=== PATIENT | male | born 1960 | race Caucasian/White ===

== ENCOUNTER 2021-08-04 05:55 | Day surgery (SDC) | payer BC ==
[2021-08-03 08:26] VITALS: BMI 31.5
[2021-08-04] MEDS ORDERED: MIDAZOLAM 2 MG/2 ML VIAL IV PRN (06:33)
[2021-08-04] MEDS ORDERED: LACTATED RINGERS 1,000 ML IV SCH (06:33)
[2021-08-04] MEDS ORDERED: DEXAMETHASONE SOD PHOSPHATE 4 MG/ML 1 ML VIAL IV ONE (06:33)
[2021-08-04] MEDS ORDERED: ONDANSETRON 4 MG/2 ML VIAL IVP ONE (06:33)
[2021-08-04] MEDS ORDERED: SCOPOLAMINE 1.5MG/72HR PATCH TRANSDERM ONE (06:33)
[2021-08-04] MEDS ORDERED: HYDROmorphone 0.5 MG/0.5 ML SYRINGE IVP PRN (07:00)
[2021-08-04] MEDS ORDERED: LACTATED RINGERS 1,000 ML IV ONE (07:10)
[2021-08-04] MEDS ORDERED: LIDOCAINE 1% INJ 10MG/ML (20 ML MDV) ONE (07:20)
[2021-08-04] MEDS ORDERED: MIDAZOLAM 2 MG/2 ML VIAL ONE (07:20)
[2021-08-04] MEDS ORDERED: PROPOFOL 10 MG/ML 20 ML VIAL IV ONE (07:20)
[2021-08-04] MEDS ORDERED: fentaNYL (PF) 50 MCG/ML 2 ML AMP ONE (07:20)
[2021-08-04] MEDS ORDERED: BUPIVACAINE (PF) 0.25% 30 ML VIAL SQ ONE (07:40)
[2021-08-04 08:47] VITALS: TEMP 96.8
--- NOTE | 2021-08-04 09:02 | P.OP ---
Date of Procedure: 08/04/21 Preoperative Diagnosis: Hallux rigidus right foot Postoperative Diagnosis: Same Procedure(s) Performed: First metatarsal phalangeal joint arthrodesis right foot Implants: Arthrex MaxForce first MTP fusion plate Anesthesia: MIKE Surgeon: Derek Rebollar Estimated Blood Loss (ml): 2 Pathology: none sent Condition: stable Disposition: PACU Indications for Procedure: Painful, arthritic first MTP nonresponsive to conservative therapy Operative Findings: Full-thickness articular cartilage erosion of the first metatarsal head encompassing greater than 75% of the joint surface. Loose osteophytes over the dorsal aspect of the base of the proximal phalanx and lateral aspect of the first metatarsal head. Large osteophyte dorsally and the first metatarsal head Description of Procedure: The patient was brought into the operative room placed on the table supine position. Timeout was taken to confirm correct patient identifiers, correct site of surgery, and correct procedure. When the timeout was completed the patient was induced and placed under general anesthesia. A well-padded tourniquet was placed on the right ankle. 20 mL 0.25% Marcaine was injected ankle block. Right was prepped and draped usual manner. The foot was exsanguinated with an Esmarch bandage and the tourniquet inflated to 250 mmHg. An incision was made over the dorsomedial aspect of the first metatarsal phalangeal joint to the extensor hallucis longus tendon and neurovascular bundle. The incision was deepened under the subcu tissue careful to identify, avoid, and retract any neurovascular structures and cauterize any bleeding vessels. Dissection was continued down to the joint capsule. A linear incision was made to the joint capsule just medial to the extensor hallucis longus tendon. The joint was then reflected from its osseous attachment was of the first metatarsal head and base of the proximal phalanx. There osteophytes present on the dorsal aspect of the base of proximal phalanx as well as the head of the first metatarsal, these were all removed with a Ronguer. There is a loose osteophyte on the lateral aspect of the first metatarsal head that was sharply dissected from the surrounding soft tissue and removed. The guidewires placed in the central aspect of the first metatarsal head and into the medullary canal. A barrel and receiver aligner was then used to contour the first metatarsal head. The concave reamer was used to remove the articular cartilage and subchondral bone down to bleeding medullary bone. The guidewire was removed and used to fenestrate the head thoroughly. Then the guidewire was inserted the middle aspect of the articular surface of the proximal phalanx., And box reamer was then used to remove the articular cartilage and subchondral bone down to bleeding medullary bone. The wire was removed and the joint surfaces also thoroughly fenestrated. The wound is then copiously irrigated with antibiotic saline. 1 mL of an Arthrex bone protein product was then placed between the arthrodesis segments. The Arthrex MaxForce plate was then positioned dorsally utilizing the reference line over the joint. It was then temporarily fixated and checked under fluoroscopy for alignment. When alignment of the joint plate were satisfactory 3 locking screws were placed distally through the plate into the proximal phalanx. Then the alignment of the plate and digit were then checked again under fluoroscopy and once satisfactory a wire was placed extra articularly across the fusion site to maintain the correction. The drill hole for the compression device was then made in the proximal aspect of the plate. The compression device was inserted and turned to further compress the arthrodesis site. Temporary fixation was then placed all in place then the compression screw was placed in the proper position in the plate to further compress the joint a distal nonlocking screw was then placed in the proximal portal plate then the last screw was a locking screw in the most proximal hole the plate. The guidewire was removed and final fluoroscopic imaging utilized to check the overall alignment and compression of the bone there was no joint space visible Seaview arthrodesis site and the alignment was within normal limits. The wound is then thoroughly irrigated with antibiotic saline. The capsules closed with 0 Vicryl. Subcu closure done for Monocryl. Skin closure done with 30 Stratafix in a running subcuticular manner. Dermal glue was applied Lunder dry then covered Steri-Strips. An Arthrex jumpstart dressing was placed over the incision and then a bulky dry dressing applied the right foot. The tourniquet was released and capillary refill return to all digits on the right foot. The patient was then placed in a well-padded, well molded plaster posterior mol d/sugar tong splint. Ankle and foot were held in neutral as it dried. Anesthesia was then reversed and the patient was taken recovery with vital signs stable.
[2021-08-04 09:24] VITALS: RESP 16
[2021-08-04 09:34] VITALS: BP 124/84; PULSE 64
[2021-08-04] MEDS ORDERED: HYDROcodone/APAP 5-325MG 1 EACH TAB ONE (09:41)
[2021-08-04] MEDS ORDERED: HYDROcodone/APAP 5-325MG 1 EACH TAB PO ONE (09:43)
== END 2021-08-04 10:23 | disposition home or self-care (01) ==
LOC: OR 05:55
PROVIDERS: ATTEND Podiatrist
DX: M20.21 Hallux rigidus, right foot (principal); E78.5 Hyperlipidemia, unspecified; H91.90 Unspecified hearing loss, unspecified ear; E07.9 Disorder of thyroid, unspecified; Z97.3 Presence of spectacles and contact lenses; Z98.1 Arthrodesis status; Z98.890 Other specified postprocedural states; Z96.82 Presence of neurostimulator; Z83.3 Family history of diabetes mellitus; Z79.1 Long term (current) use of non-steroidal anti-inflammatories (NSAID); Z79.899 Other long term (current) drug therapy
CPT/HCPCS: 28750; C1713; J2250; J1100; J0690; J2405; J2001; J3010; J2704; J1170

== ENCOUNTER → 2024-05-15 | Day surgery (SDC) | payer BC ==
[2024-05-14 09:08] VITALS: BMI 26.5
[~2024-05-15] MED LIST: HYDROmorphone 0.5 MG/0.5 ML SYRINGE IVP PRN; LIDOCAINE 1% (10MG/ML) FOR IV START INTRADERMA PRN; LIDOCAINE 1% INJ 10MG/ML (20 ML MDV) ONE; MIDAZOLAM 2 MG/2 ML VIAL ONE; PROPOFOL 10 MG/ML 20 ML VIAL IV ONE; droPERidol 5 MG/2 ML VIAL IVP ONE; fentaNYL (PF) 50 MCG/ML 2 ML AMP ONE
[2024-05-15] MEDS: IV FLUID CONTINUATION 1,000 ML IV ONE (07:22)
[2024-05-15] MEDS: LACTATED RINGERS 1,000 ML IV SCH (08:08)
[2024-05-15] MEDS: DEXAMETHASONE SOD PHOSPHATE 4 MG/ML 1 ML VIAL IV ONE (08:08)
[2024-05-15] MEDS: ONDANSETRON 4 MG/2 ML VIAL IVP ONE (08:08)
[2024-05-15] MEDS: BUPIVACAINE (PF) 0.25% 30 ML VIAL SQ ONE (09:44)
--- NOTE | 2024-05-15 10:43 | P.OP ---
Date of Procedure: 05/15/24 Preoperative Diagnosis: Hallux rigidus left foot Postoperative Diagnosis: same Procedure(s) Performed: first metatarsal phalangeal joint arthrodesis left foot Implants: Arthrex MaxForce plate with locking and nonlocking screws Arthrex Allosync Anesthesia: KATLYNA Surgeon: Derek Rebollar Estimated Blood Loss (ml): 2 Pathology: none sent Condition: stable Disposition: PACU Description of Procedure: The patient was brought into the operating room and placed on table in the supine position. Timeout was taken to confirm correct patient identifiers, correct laterality of surgery, and correct procedure. Once the staff in the room were in agreement with the timeout, the patient was induced and placed under general anesthesia. 20 mL of 0.25% Marcaine was injected as a posterior tibial nerve block as well as a forefoot block.A well-padded tourniquet was p laced on the ankle and then the foot was prepped and draped in the usual manner. The foot was exsanguinated and the tourniquet inflated to 250 mmHg. Attention was directed over the dorsal aspect of the first metatarsal phalangeal joint, where a linear incision was made between the long extensor tendon and the neurovascular structures. The incision was deepened down to the subcutaneous layer careful to identify, avoid, and retract any neurovascular structures and cauterize any bleeding vessels. Blunt dissection was continued through the subcutaneous layer down to the periosteum and capsule. A linear periosteal and capsular incision was made medial to the long extensor tendon. Those tissues were then sharply reflected off of the first metatarsal head and shaft as well as the base of the proximal phalanx. The soft tissue was released around the joint so that the joint could be mobilized and accessed. A guidewire was placed through the central aspect of the first metatarsal head parallel to the long access and within the medullary canal. Appropriate size reamers were used to shape the first metatarsal head. Then a concave reamer was inserted over the guidewire and used to remove the articular cartilage and subchondral bone. The wire was removed and a 2.0 mm drill was used to aggressively fenestrate the head of the first metatarsal. The guidewire was then inserted at the central aspect of the articular surface of the base of the proximal phalanx. The wire was advanced parallel to the long access and within the medullary canal. The convex reamer was then used to remove the articular cartilage and subchondral bone. The guidewire was removed and a 2.0 mm drill was used to fenestrate the surface. The wound was thoroughly irrigated with antibiotic saline. Arthrex Arthrocell was placed between the arthrodesis segments. A 0 bend first metatarsal phalangeal joint fusion plate was then positioned dorsally over the site. Temporary fixation was used to hold the plate in place. Fluoroscopy was used to check the placement of the plate as well as the joint alignment. Once both positions were satisfactory, a combination of locking and nonlocking screws were placed in the distal part of the plate into the proximal phalanx. The position of the joint and plate were checked again under fluoroscopy. Once both were satisfactory, a wire was placed in the base of the proximal phalanx and across the arthrodesis site to maintain the alignment. The offset drill guide was then placed in the compression slot of the plate and a drill hole made through the guide. The guide was removed and then the compression device was inserted through the drill hole and engaged with the plate. The compression device was turned to further compress the joint. While holding in compression, another threaded olive wire was used to hold it in place. A drill hole through the proximal compression slot was then made and a nonlocking screw was inserted and tightened until it engaged the plate and provided further compression across the arthrodesis site. A nonlocking screw was then placed in the drill hole in the proximal aspect of the plate closest to the joint line. The final screw was a locking screw placed in the most proximal hole the plate. Final fluoroscopic imaging showed proper placement of all hardware, maintaining correction of the joint, and excellent compression across the arthrodesis site. The temporary fixation wire was removed and the joint thoroughly irrigated with antibiotic saline. The capsule and periosteal tissues were closed with 0 Vicryl. Subcu closure was done with 4-0 Monocryl. And skin closure was done with 4-0 Stratafix in a running subcuticular manner. Dermal glue was placed around the incision, and once dried, Steri-Strips are placed across incision. An Arthrex jumpstart dressing was placed directly over the incision and then a dry sterile dressings applied to the right foot. The tourniquet was released and capillary refill return to all digits on the foot. The patient was then placed in a well- padded, well molded plaster posterior mold/sugar tong splint. The ankle was held in neutral position until the splint was dried. Then anesthesia was reversed and the patient was taken recovery with vital signs stable.
[2024-05-15 10:58] VITALS: TEMP 96.8
[2024-05-15 11:26] VITALS: RESP 14
[2024-05-15] MEDS: HYDROcodone/APAP 5-325MG 1 EACH TAB PO STA (11:36)
[2024-05-15 11:38] VITALS: BP 133/77; PULSE 64
== END | disposition home or self-care (01) ==
LOC: OR 07:06
PROVIDERS: ATTEND Podiatrist
DX: M20.22 Hallux rigidus, left foot (principal); E78.5 Hyperlipidemia, unspecified; M54.50 Low back pain, unspecified; H91.90 Unspecified hearing loss, unspecified ear; N48.1 Balanitis; G43.909 Migraine, unspecified, not intractable, without status migrainosus; Z79.899 Other long term (current) drug therapy
CPT/HCPCS: 28750; C1713; C1734; J2250; J1100; J0690; J2405; J2003; J3010; J2704; J0665